=== PATIENT | female | born 1985 | race Caucasian/White ===

== ENCOUNTER 2018-12-29 00:46 | Emergency (ER) | payer MEDICAID ==
[~2018-12-29] VITALS: Ht 149.9 cm; Wt 49.4 kg
[~2018-12-29 00:46] MED LIST: ALBUPOW26; ERGO1CAP6 PO; HYDR500T13; TRAM50TA2
[2018-12-29 01:21] VITALS: BP 99/51
== END 2018-12-29 03:57 | disposition left against medical advice (07) ==
LOC: ER 00:48
DX: M54.5 Low back pain (principal); Z53.21 Procedure and treatment not carried out due to patient leaving prior to being seen by health care provider

== ENCOUNTER 2019-06-26 20:02 | Emergency (ER) | payer MEDICAID ==
[~2019-06-26] VITALS: Ht 152.4 cm; Wt 47.2 kg
[2019-06-26 20:21] VITALS: BP 113/68
[2019-06-26 20:49] LABS: Basophils # (auto) 0 uL; Basophils % (auto) 0.5 % (0.0-2.0); Eosinophils # (auto) 0.1 uL; Eosinophils % (auto) 1.7 % (0.0-7.0); Hematocrit 37.8 % (36.0-46.0); Hemoglobin 13.1 g/dL (12.2-16.2); Lymphocytes # (auto) 0.9 uL; Lymphocytes % (auto) 21.5 % (10.0-50.0); Mean Corpuscular Hgb Conc. 34.6 g/dL (32.0-36.0); Mean Corpuscular Volume 89.7 fL (80.0-100.0); Monocytes # (auto) 0.8 uL; Monocytes % (auto) 17.7 % (0.0-12.0); Neutrophils # (auto) 2.6 uL; Neutrophils % (auto) 58.6 % (37.0-80.0); Platelet Count (auto) 154 10^3/uL (140-450); Red Blood Cells 4.21 10^6/uL (4.0-5.20); Red Cell Distribution Width 13.3 % (11.8-14.3); White Blood Cell 4.4 10^3/uL (4.4-10.8)
== END 2019-06-27 | disposition left against medical advice (07) ==
LOC: ER 20:08
DX: R05 Cough (principal); R09.89 Other specified symptoms and signs involving the circulatory and respiratory systems; Z53.21 Procedure and treatment not carried out due to patient leaving prior to being seen by health care provider
CPT/HCPCS: 36415; 85025

== ENCOUNTER 2024-11-01 17:19 | Inpatient (IN) | payer MEDICAID ==
[~2024-11-01] VITALS: Ht 152.4 cm; Wt 42.2 kg
[2024-11-01 17:44] VITALS: BP 139/70; PULSE 82; RESP 16; TEMP 98.2; O2SAT 99
[2024-11-01] MEDS ORDERED: ONDANSETRON HCL 4 MG/2 ML VIAL IV ONE (17:45)
[2024-11-01] MEDS ORDERED: MORPHINE SULFATE 4 MG/ML SYR/VIAL IV ONE (17:45)
[2024-11-01 18:39] LABS: Basophils # (auto) 0.1 10 ^3/uL (0-0.2); Basophils % (auto) 1.4 % (0.0-2.0); Eosinophils # (auto) 0.4 10 ^3/uL (0-0.8); Eosinophils % (auto) 6.5 % (0.0-7.0); Hematocrit 36.2 % (36.0-46.0); Hemoglobin 12.5 g/dL (12.2-16.2); Lymphocytes # (auto) 1.9 10 ^3/uL (0.4-5.4); Lymphocytes % (auto) 35.8 % (10.0-50.0); Mean Corpuscular Hemoglobin 31.4 pg (28.0-32.0); Mean Corpuscular Hgb Conc. 34.6 g/dL (32.0-36.0); Mean Corpuscular Volume 90.6 fL (80.0-100.0); Monocytes # (auto) 0.4 10 ^3/uL (0-1.3); Monocytes % (auto) 6.8 % (0.0-12.0); Neutrophils # (auto) 2.7 10 ^3/uL (1.6-8.6); Neutrophils % (auto) 49.5 % (37.0-80.0); Nucleated Red Blood Cells % 0.1 %; Platelet Count (auto) 188 10^3/uL (140-450); White Blood Cell 5.4 10^3/uL (4.4-10.8)
--- NOTE | 2024-11-01 18:55 | DVH ---
EXAM: CT LS SPINE WO CONTRAST INDICATION: lumbar spine pain EXAM DATE: 11/01/2024 05:57 PM COMPARISON: None TECHNIQUE: Multiple axial CT images of the lumbar spine were obtained using bone algorithm. Axial and coronal reformatting was done. Bone and soft tissue windows were reviewed. Radiation Dose Information: CT Dose: CTDI volume is 7.14 mGy. Dose-length product is 468.77 mGy*cm Findings: There are 5 nonrib-bearing lumbar vertebrae. There is no evidence of an acute fracture or spondylolisthesis. The vertebral body heights are well-m aintained. No evidence of degenerative disc disease. No neuroforaminal narrowing. No spinal canal stenosis. The alignment is within normal limits. The paraspinal soft tissues appear within normal limits. The v isualized portions of the abdomen are unremarkable. T12-L1: Normal L1-L2: Normal L2-L3: Normal L3-L4: Normal L4-L5: Normal L5-S1: Normal Impression: 1. No evidence of an acute fracture.
[2024-11-01 18:56] LABS: Alanine Aminotransferase 11 U/L (7-40); Alkaline Phosphatase 90 U/L (46-116); Anion Gap 7 (5-15); BUN/Creatinine Ratio 10.7 (10.0-20.0); Bilirubin, Total 0.3 mg/dL (0.2-1.0); Calcium 10.2 mg/dL (8.7-10.4); Carbon Dioxide 23 mmol/L (20-31); Glucose 93 mg/dL (74-106); Potassium 3.9 mmol/L (3.5-5.1); Sodium 143 mmol/L (136-145); Total Protein 6.9 g/dL (5.7-8.2)
--- NOTE | 2024-11-01 18:56 | DVH ---
Indication: pelvic pain, mass protruding from urethra Technique: CT axial images of the abdomen and pelvis are obtained without contrast. Coronal and sagit [place] reformats were obtained. Radiation Dose Information: CTDI volume is 7.1 mGy. Dose-length product is 469 mGy*cm Comparison: None FINDINGS: There is limited interpretation of the abdomen and pelvis without administration of intravenous contr ast. The lung bases demonstrate no pleural effusion. Adrenal glands, spleen and pancreas unremarkable in shape. Liver unremarkable in shape. No CT eviden ce for cholelithiasis. No hydronephrosis, nephrolithiasis. Stomach is partially distended. Small bowel loops are normal in caliber. Moderate volume stool in the colon. Normal appendix. Bladder partially distended. No significant free pelvic fluid. No inguinal lymphadenopathy. No aggressive osseous process. IMPRESSION: 1. No CT evidence for acute abnormality of the abdomen/pelvis. 2. To evaluate for urethral mass recommend direct visualization and urology consultation. MRI of the pelvis with and without contrast can also be considered to further evaluate. 3. Other findings as described.
[2024-11-01 18:57] LABS: Aspartate Aminotransferase < 8 U/L (13-40); Blood Urea Nitrogen 8 mg/dL (9-23); Chloride 113 mmol/L (98-107)
--- NOTE | 2024-11-01 20:05 | ED.PDOC ---
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 She denies any diarrhea or constipation. She also notes that when she attempted to visualize her vaginal area, she noted something protruding from her urethra. She was able to obtain a video, showing an approximate 3 mm black colored mass protruding from her urethra. Chief Complaint: Urinary Time Seen by MD: 17:50 Primary Care Provider: TAY Arcos Notes: Nurses Notes, Medications, Allergies Allergies: Coded Allergies: Acetaminophen (Verified Allergy, Unknown, 11/01/24) Hydrocodone (Verified Allergy, Unknown, 12/29/18) Home Meds Reported Medications Albuterol (Albuterol) Pow 08/01/12 Ergocalciferol (Vitamin D) 50,000 Unt Cap, 12382 UNITS PO OD 08/01/12 [Acetaminophen/H1 Tab] (Acetaminophen/Hydrocodone) 1 TAB TAB No Conflict Check, TAB 07/21/12 [Tramadol Hcl50 Mg] (Tramadol Hcl) 50 MG TAB No Conflict Check, MG 07/21/12 Information Source: Patient Mode of Arrival: Ambulatory Severity: Moderate Past Medical History PAST MEDICAL HISTORY: Arthritis, Asthma, Cancer (cervical cancer - in remission) Past Medical History (Other): 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 Surgical History: Hysterectomy (total s/p endometriosis ), Tonsillectomy Surgical History (Other): Bradycardia with hybrid open-heart surgery and temporary pacemaker placement RETRIMMER History: Cervical Cancer, Endometriosis Family History Family History: Reviewed,noncontributory to illness Social History Smoker: Cigarettes Alcohol: Occasionally Drugs: Denies Drug Use Lives In: Home All Other Systems: Reviewed and Negative (Comprehensive systems review obtained and negative except for what is stated in the HPI.) Physical Exam General Appearance: No Apparent Distress HEENT: Other (Pupils and face symmetric. Moist mucous membranes.) Neck: Full Range of Motion, Normal Inspection Respiratory: Lungs Clear, No Accessory Muscle Use, No Respiratory Distress, Normal Breath Sounds Cardiovascular: No Edema, No JVD, Regular Rate/Rhythm Breast Exam: Deferred Gastrointestinal: Soft, Suprapubic, Tenderness Genitalia: Deferred Pelvic: Deferred Rectal: Deferred Extremities: Normal inspection, Normal range of motion, No pedal edema Musculoskeletal : Extremity Location: Back (Lower lumbar and sacral midline tenderness to palpation) Apperance: Swelling (Minimal soft tissue swelling midline sacral area without discoloration), Tenderness Neurologic: Alert (Oriented x4), Normal Affect, Normal Mood, Other (Ambulatory) Cerebellar Function: NOT DONE Reflexes: NOT DONE Skin: Dry, Normal Color, Warm Lymphatic: NOT DONE Was a procedure done? Was a procedure done?: No Differential Dx Considerations may include: UTI, bladder/urethral neoplasm, metastatic disease, disc disease, among others X-Ray, Labs, Meds, VS Vital Signs Date Time Temp Pulse Resp B/P (MAP) Pulse Ox O2 Delivery O2 Flow Rate FiO2 11/01/24 17:44 98.2 82 16 139/70 (93) 99 98.2 Lab Test 11/01/24 19:15 11/01/24 18:19 Range/Units Troponin I High Sensitivity < 3 L < 3 L </=34 ng/L White Blood Count 5.4 4.4-10.8 10^3/uL Red Blood Count 4.00 4.0-5.20 10^6/uL Hemoglobin 12.5 12.2-16.2 g/dL Hematocrit 36.2 36.0-46.0 % Mean Corpuscular Volume 90.6 80.0-100.0 fL Mean Corpuscular Hemoglobin 31.4 28.0-32.0 pg Mean Corpuscular Hemoglobin Concent 34.6 32.0-36.0 g/dL Red Cell Distribution Width 13.0 11.8-14.3 % Platelet Count 188 140-450 10^3/uL Mean Platelet Volume 9.6 6.9-10.8 fL Neutrophils (%) (Auto) 49.5 37.0-80.0 % Lymphocytes (%) (Auto) 35.8 10.0-50.0 % Monocytes (%) (Auto) 6.8 0.0-12.0 % Eosinophils (%) (Auto) 6.5 0.0-7.0 % Basophils (%) (Auto) 1.4 0.0-2.0 % Neutrophils # (Auto) 2.7 1.6-8.6 10 ^3/uL Lymphocytes # (Auto) 1.9 0.4-5.4 10 ^3/uL Monocytes # (Auto) 0.4 0-1.3 10 ^3/uL Eosinophils # (Auto) 0.4 0-0.8 10 ^3/uL Basophils # (Auto) 0.1 0-0.2 10 ^3/uL Nucleated Red Blood Cells 0.1 % Sodium Level 143 136-145 mmol/L Potassium Level 3.9 3.5-5.1 mmol/L Chloride Level 113 H 98-107 mmol/L Carbon Dioxide Level 23 20-31 mmol/L Anion Gap 7 5-15 Blood Urea Nitrogen 8 L 9-23 mg/dL Creatinine 0.75 0.550-1.02 mg/dL Glomerular Filtration Rate Calc 105 >90 mL/min BUN/Creatinine Ratio 10.7 10.0-20.0 Serum Glucose 93 74-106 mg/dL Lactic Acid Level 0.8 0.4-2.0 mmol/L Calcium Level 10.2 8.7-10.4 mg/dL Total Bilirubin 0.3 0.2-1.0 mg/dL Aspartate Amino Transferase (AST) < 8 L 13-40 U/L Alanine Aminotransferase (ALT) 11 7-40 U/L Alkaline Phosphatase 90 46-116 U/L B-Type Natriuretic Peptide 20.66 0-100 pg/mL Total Protein 6.9 5.7-8.2 g/dL Albumin 5.0 H 3.2-4.8 g/dL [place] [address] Ph: [phone] DIAGNOSTIC IMAGING Diagnostic Imaging Report : [id number] Signed PATIENT: BRADLEY NORRIS ACCT: [id number] UNIT: [id number] : 1985 LOC: ER ROOM / BED: / AGE / SEX: 39 / F ADM STATUS: REG ER SERVICE [id number] ORDERING PHYSICIAN: WANDA SAINI MD PROCEDURE(s): LS2CT - LS SPINE WO CONTRAST REASON: lumbar spine pain ORDER NUMBER(s): [id number], ACCESSION NUMBER(s): [id number] EXAM: CT LS SPINE WO CONTRAST INDICATION: lumbar spine pain EXAM DATE: 11/01/2024 05:57 PM COMPARISON: None TECHNIQUE: Multiple axial CT images of the lumbar spine were obtained using bone algorithm. Axial and coronal reformatting was done. Bone and soft tissue windows were reviewed. Radiation Dose Information: CT Dose: CTDI volume is 7.14 mGy. Dose-length product is 468.77 mGy*cm Findings: There are 5 nonrib-bearing lumbar vertebrae. There is no evidence of an acute fracture or spondylolisthesis. The vertebral body heights are well-maintained. No evidence of degenerative disc disease. No neuroforaminal narrowing. No spinal canal stenosis. The alignment is within normal limits. The paraspinal soft tissues appear within normal limits. The visualized portions of the abdomen are unremarkable. T12-L1: Normal L1-L2: Normal L2-L3: Normal L3-L4: Normal L4-L5: Normal L5-S1: Normal Impression: 1. No evidence of an acute fracture. ATED BY: SUZIE SANTILLAN DO DICTATED DATE/TIME: 11/01/241851 SIGNED BY: SUZIE SANTILLAN DO SIGNED DATE/TIME: 11/01/241851 CC: [place] [id number] Ph: [phone] DIAGNOSTIC IMAGING Diagnostic Imaging Report : [id number] Signed PATIENT: BRADLEY NORRIS ACCT: [id number] UNIT: [id number] : 1985 LOC: ER ROOM / BED: / AGE / SEX: 39 / F ADM STATUS: REG ER SERVICE [id number] ORDERING PHYSICIAN: WANDA SAINI MD PROCEDURE(s): ABPL - CT AB PEL WO CON-NO ORAL OR IV REASON: pelvic pain, mass protruding from urethra ORDER NUMBER(s): [id number], ACCESSION NUMBER(s): [id number] Indication: pelvic pain, mass protruding from urethra Technique: CT axial images of the abdomen and pelvis are obtained without contrast. Coronal and sagittal reformats were obtained. Radiation Dose Information: CTDI volume is 7.1 mGy. Dose-length product is 469 mGy*cm Comparison: None FINDINGS: There is limited interpretation of the abdomen and pelvis without administration of intravenous contrast. The lung bases demonstrate no pleural effusion. Adrenal glands, spleen and pancreas unremarkable in shape. Liver unremarkable in shape. No CT evidence for cholelithiasis. No hydronephrosis, nephrolithiasis. Stomach is partially distended. Small bowel loops are normal in caliber. Moderate volume stool in the colon. Normal appendix. Bladder partially distended. No significant free pelvic fluid. No inguinal lymphadenopathy. No aggressive osseous process. IMPRESSION: 1. No CT evidence for acute abnormality of the abdomen/pelvis. 2. To evaluate for urethral mass recommend direct visualization and urology consultation. MRI of the pelvis with and without contrast can also be considered to further evaluate. 3. Other findings as described. 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 CT abdomen and pelvis IMPRESSION: 1. No CT evidence for acute abnormality of the abdomen/pelvis. 2. To evaluate for urethral mass recommend direct visualization and urology consultation. MRI of the pelvis with and without contrast can also be considered to further evaluate. 3. Other findings as described. CBC, CMP, lactate, BNP and troponin unremarkable for any abnormality of acute significance. Patient did not provide a urine sample. Patient treated with the following in the ED: Morphine 4 mg IV, Zofran 4 mg IV Plan was to admit the patient for evaluation by Urology and possible ureteroscopy/cystoscopy. Prior to re-evaluation, the patient stated to staff that she was able to obtain an appointment [facility] and did not want to stay. She signed out against medical advice left the ED prior to my ability to discuss risks, benefits and alternatives to treatment. Patient was alert, oriented x4 and capable of making informed decisions at the time she signed out against medical advice. Time of 1ST Reevaluation: 18:20 Reevaluation 1ST: Unchanged Patient Education/Counseling: Diagnosis, Treatment Family Education/Counseling: No Family Present Departure 1 Departure Time of Disposition: 21:32 Impression: Primary Impression: Abdominal pain Qualified Codes: R10.30 - Lower abdominal pain, unspecified Additional Impressions: Back pain Qualified Codes: M54.50 - Low back pain, unspecified Mass of urethra Disposition: LEFT AGAINST MEDICAL ADVICE Condition: Fair Discharged With: Self Critical Care Note Critical Care Time?: No Stability Stability form required: No Heart Score Heart Score: Heart Score Response (Comments) Value History N/A 0 EKG N/A 0 Age N/A 0 Risk Factors N/A 0 Troponin N/A 0 Total 0 I personally scribed for WANDA SAINI MD ([email or web address]) on 11/01/24 at 20:05. Electronically submitted by Som Berkowitz ([email or web address]). I personally scribed for WANDA SAINI MD ([email or web address]) on 11/01/24 at 21:16. Electronically submitted by Som Berkowitz ([email or web address]). WANDA SAINI MD November 01, 2024 20:05
--- NOTE | 2024-11-01 21:36 | DVHHP2 ---
History of Present Illness History of Present Illness Patient was 39 years old female with a history of cervical carcinoma diagnosed with a 60, status post hysterectomy with salpingo-oophorectomy at the age of 23, history of coronary artery disease nonspecific, history of hybrid heart surgery in 2022 at [facility], could not get a details, history of asthma, arthritis, history of lupus came with multiple complaints. As per patient something is coming out of her urethra from today, as per patient when she P there is no blood but after she pees she has sees blood when wiping, she felt like something is coming out through her urethra. Patient also reported having dysuria since Thursday. Patient also reported feeling weak that extended from the lower back to the lower extremity but able to walk, on further inquiry patient was reported feeling dizzy tired, feels feverish temperature around 99.8-99.9 at home, intermittent fever. Patient also reported she has been through lots of anxiety and stress in her life and she is a holistic healer. Patient also endorsed poor appetite, nausea but no vomiting. Patient reported she has a history of HPV positive, repeat checkup revealed she has a precancerous lesion in the service but never got cured from treatment. Patient visited [facility] in June 16 with a complaint of symptomatic palpitation syncope with frequent narrow complex tachycardia. On 06/21/2019 Dr. Roberson did comprehensive electrophysiology study and ablation of SVT. Patient had successful EP study with evidence of S/F AVNRT, status post modification of slow pathway successfully. Patient denied taking any medication at this moment, denied any chest pain or shortness of breath acute joint pain or swelling dysarthria or change in vision. CT scan of the lumbar spine negative for any fracture, CT abdomen and pelvis negative for any acute intra-abdominal abnormality. To evaluate for urethral mass recommend direct visualization and urology consultation. MRI of the pelvis with and without contrast can also be considered to further evaluate. Past Medical History history of cervical carcinoma diagnosed with a 60, status post hysterectomy with salpingo-oophorectomy at the age of 23, history of coronary artery disease nonspecific, history of hybrid heart surgery in 2022 at [facility], could not get a details, history of asthma, arthritis, history of lupus Past Surgical History Hysterectomy (total s/p endometriosis ), Tonsillectomy Family History Mom had hypertension, diabetes mellitus, dad could not get details how Past Social History Patient lives with the and kids, vapes, smokes marijuana, denies alcoholism Review of Systems Review of Systems Patient was seen today at the bedside. Cardiovascular- deny acute chest pain or shortness of breath or cough or palpitation Respiratory denies cough or short of breath or wheezing Gastrointestinal- denies any rectal bleeding, nausea or vomiting Musculoskeletal-denies acute joint swelling or tenderness or redness Neurological- denies acute dysarthria, dysphagia, change in vision Psychiatry- denies depression or SI or HI Skin- denies acute rash or purpura Allergies: Coded Allergies: Acetaminophen (Verified Allergy, Unknown, 11/01/24) Hydrocodone (Verified Allergy, Unknown, 12/29/18) Exam Vital Signs Vital Signs Date Time Temp Pulse Resp B/P (MAP) Pulse Ox O2 Delivery O2 Flow Rate FiO2 11/01/24 17:44 98.2 82 16 139/70 (93) 99 98.2 Exam General examination- awake, alert, order HEENT- PEERLA, no acute nasal discharge Cardiovascular- S1-S2 audible, rate and rhythm regular, no murmur Respiratory- CTAB, no wheeze or rhonchi Gastrointestinal-nontender, bowel sound+. Nondistended Musculoskeletal-no acute joint swelling or tenderness or redness Lower extremity- no leg edema Neurological- cranial nerves intact, no acute dysarthria or dysphagia Psychiatry- denies depression or SI or HI Skin- no acute rash or purpura Labs/Xrays Labs Test 11/01/24 19:15 11/01/24 18:19 Range/Units Troponin I High Sensitivity < 3 L </=34 ng/L White Blood Count 5.4 4.4-10.8 10^3/uL Red Blood Count 4.00 4.0-5.20 10^6/uL Hemoglobin 12.5 12.2-16.2 g/dL Hematocrit 36.2 36.0-46.0 % Mean Corpuscular Volume 90.6 80.0-100.0 fL Mean Corpuscular Hemoglobin 31.4 28.0-32.0 pg Mean Corpuscular Hemoglobin Concent 34.6 32.0-36.0 g/dL Red Cell Distribution Width 13.0 11.8-14.3 % Platelet Count 188 140-450 10^3/uL Mean Platelet Volume 9.6 6.9-10.8 fL Neutrophils (%) (Auto) 49.5 37.0-80.0 % Lymphocytes (%) (Auto) 35.8 10.0-50.0 % Monocytes (%) (Auto) 6.8 0.0-12.0 % Eosinophils (%) (Auto) 6.5 0.0-7.0 % Basophils (%) (Auto) 1.4 0.0-2.0 % Neutrophils # (Auto) 2.7 1.6-8.6 10 ^3/uL Lymphocytes # (Auto) 1.9 0.4-5.4 10 ^3/uL Monocytes # (Auto) 0.4 0-1.3 10 ^3/uL Eosinophils # (Auto) 0.4 0-0.8 10 ^3/uL Basophils # (Auto) 0.1 0-0.2 10 ^3/uL Nucleated Red Blood Cells 0.1 % Sodium Level 143 136-145 mmol/L Potassium Level 3.9 3.5-5.1 mmol/L Chloride Level 113 H 98-107 mmol/L Carbon Dioxide Level 23 20-31 mmol/L Anion Gap 7 5-15 Blood Urea Nitrogen 8 L 9-23 mg/dL Creatinine 0.75 0.550-1.02 mg/dL Glomerular Filtration Rate Calc 105 >90 mL/min BUN/Creatinine Ratio 10.7 10.0-20.0 Serum Glucose 93 74-106 mg/dL Lactic Acid Level 0.8 0.4-2.0 mmol/L Calcium Level 10.2 8.7-10.4 mg/dL Total Bilirubin 0.3 0.2-1.0 mg/dL Aspartate Amino Transferase (AST) < 8 L 13-40 U/L Alanine Aminotransferase (ALT) 11 7-40 U/L Alkaline Phosphatase 90 46-116 U/L B-Type Natriuretic Peptide 20.66 0-100 pg/mL Total Protein 6.9 5.7-8.2 g/dL Albumin 5.0 H 3.2-4.8 g/dL Assessment/Plan Assessment/Plan Assessment and plan 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 pain wlikely due to 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 Suspected cystocele Suspected UTI History of asthma no exacerbation Arthritis History of lupus History of cardiac arrhythmia status post ablation therapy following electrophy siology study Anxiety/depression History of cervical carcinoma, status post hysterectomy with salpingo- oophorectomy CT abdomen negative for any acute intra-abdominal abnormality CT lumbar spine negative for acute fracture Plan Ordered Gynecology consult for further evaluation and care Pending urinalysis and uterine CS Continue current medication as prescribed Pending UDS Goals of care, Code status ; discussed with >15 minutes PUD prophylaxis: Pantoprazole DVT prophylaxis: Patient is ambulate Plan discussed with Dr. Nunez , nursing staff, Total time spent on patient evaluation, chart review, assessment and plan, disc ussion discussion >35 minutes Plan discussed with: Patient, Other (RN) Date of Service: November 01, 2024 Billing Provider: EVANS NUNEZ MD Common Visit Codes: 75545-CRPCZTX INP/OBS CARE (HIGH) Secondary Visit Codes: 87246-OSXJGERM CARE PLAN 30 MINUTES RAMBO LÓPEZ RESIDENT November 01, 2024 21:36
[2024-11-01] MEDS ORDERED: ACETAMINOPHEN 325 MG TAB PO PRN (21:45)
[2024-11-01] MEDS ORDERED: DOCUSATE SOD 100 MG CAP PO PRN (21:45)
[2024-11-01] MEDS ORDERED: MORPHINE SULFATE INJ 2 MG/ml SYRG IV PRN (21:45)
[2024-11-01] MEDS ORDERED: NITROGLYCERIN 0.4 MG SL TAB SL PRN (21:45)
[2024-11-01] MEDS ORDERED: PANTOPRAZOLE 40 MG TAB PO ONE (22:00)
--- NOTE | 2024-11-01 23:13 | DVHDSRES ---
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0-80.0) Lymphocytes (%) (Auto) 35.8 % (10.0-50.0) Monocytes (%) (Auto) 6.8 % (0.0-12.0) Eosinophils (%) (Auto) 6.5 % (0.0-7.0) Basophils (%) (Auto) 1.4 % (0.0-2.0) Neutrophils # (Auto) 2.7 10 ^3/uL (1.6-8.6) Lymphocytes # (Auto) 1.9 10 ^3/uL (0.4-5.4) Monocytes # (Auto) 0.4 10 ^3/uL (0-1.3) Eosinophils # (Auto) 0.4 10 ^3/uL (0-0.8) Basophils # (Auto) 0.1 10 ^3/uL (0-0.2) Nucleated Red Blood Cells 0.1 % Sodium Level 143 mmol/L (136-145) Potassium Level 3.9 mmol/L (3.5-5.1) Chloride Level 113 mmol/L (98-107) Carbon Dioxide Level 23 mmol/L (20-31) Anion Gap 7 (5-15) Blood Urea Nitrogen 8 mg/dL (9-23) Creatinine 0.75 mg/dL (0.550-1.02) Glomerular Filtration Rate Calc 105 mL/min (>90) BUN/Creatinine Ratio 10.7 (10.0-20.0) Serum Glucose 93 mg/dL (74-106) Lactic Acid Level 0.8 mmol/L (0.4-2.0) Calcium Level 10.2 mg/dL (8.7-10.4) Total Bilirubin 0.3 mg/dL (0.2-1.0) Aspartate Amino Transferase (AST) < 8 U/L (13-40) Alanine Aminotransferase (ALT) 11 U/L (7-40) Alkaline Phosphatase 90 U/L (46-116) B-Type Natriuretic Peptide 20.66 pg/mL (0-100) Total Protein 6.9 g/dL (5.7-8.2) Albumin 5.0 g/dL (3.2-4.8) Other Laboratory Tests 11/01/24 18:19 Brief Hx & Hospital Course: Discharge summary- Patient was 39 years old female with a history of cervical carcinoma diagnosed with a 60, status post hysterectomy with salpingo- oophorectomy at the age of 23, history of coronary artery disease nonspecific, history of hybrid heart surgery in 2022 at [facility], could not get a details, history of asthma, arthritis, history of lupus came with multiple complaints. As per patient something is coming out of her urethra from today, as per patient when she P there is no blood but after she pees she has sees blood when wiping, she felt like something is coming out through her urethra. Patient also reported having dysuria since Thursday. Patient also reported feeling weak that extended from the lower back to the lower extremity but able to walk, on further inquiry patient was reported feeling dizzy tired, feels feverish temperature around 99.8-99.9 at home, intermittent fever. Patient also reported she has been through lots of anxiety and stress in her life and she is a holistic healer. Patient also endorsed poor appetite, nausea but no vomiting. Patient reported she has a history of HPV positive, repeat checkup revealed she has a precancerous lesion in the service but never got cured from treatment. Patient visited [facility] in June 16 with a complaint of symptomatic palpitation syncope with frequent narrow complex tachycardia. On 06/21/2019 Dr. Roberson did comprehensive electrophysiology study and ablation of SVT. Patient had successful EP study with evidence of S/F AVNRT, status post modification of slow pathway successfully. Patient denied taking any medication at this moment, denied any chest pain or shortness of breath acute joint pain or swelling dysarthria or change in vision. CT scan of the lumbar spine negative for any fracture, CT abdomen and pelvis negative for any acute intra-abdominal abnormality. To evaluate for urethral mass recommend direct visualization and urology consultation. MRI of the pelvis with and without contrast can also be considered to further evaluate. Pending UDS, urinalysis. Patient left AMA. Patient's condition on discharge undetermined Operations or Procedures [place] [id number] Ph: [phone] DIAGNOSTIC IMAGING Diagnostic Imaging Report : [id number] Signed PATIENT: BRADLEY NORRIS ACCT: [id number] UNIT: [id number] : 1985 LOC: ER ROOM / BED: / AGE / SEX: 39 / F ADM STATUS: REG ER SERVICE [id number] ORDERING PHYSICIAN: WANDA SAINI MD PROCEDURE(s): LS2CT - LS SPINE WO CONTRAST REASON: lumbar spine pain ORDER NUMBER(s): [id number], ACCESSION NUMBER(s): [id number] EXAM: CT LS SPINE WO CONTRAST INDICATION: lumbar spine pain EXAM DATE: 11/01/2024 05:57 PM COMPARISON: None TECHNIQUE: Multiple axial CT images of the lumbar spine were obtained using bone algorithm. Axial and coronal reformatting was done. Bone and soft tissue windows were reviewed. Radiation Dose Information: CT Dose: CTDI volume is 7.14 mGy. Dose-length product is 468.77 mGy*cm Findings: There are 5 nonrib-bearing lumbar vertebrae. There is no evidence of an acute fracture or spondylolisthesis. The vertebral body heights are well-maintained. No evidence of degenerative disc disease. No neuroforaminal narrowing. No spinal canal stenosis. The alignment is within normal limits. The paraspinal soft tissues appear within normal limits. The visualized portions of the abdomen are unremarkable. T12-L1: Normal L1-L2: Normal L2-L3: Normal L3-L4: Normal L4-L5: Normal L5-S1: Normal Impression: 1. No evidence of an acute fracture. ATED BY: SUZIE SANTILLAN DO DICTATED DATE/TIME: 11/01/241851 SIGNED BY: SUZIE SANTILLAN DO SIGNED DATE/TIME: 11/01/241851 CC: [place] [id number] Ph: [phone] DIAGNOSTIC IMAGING Diagnostic Imaging Report : [id number] Signed PATIENT: BRADLEY NORRIS ACCT: [id number] UNIT: [id number] : 1985 LOC: ER ROOM / BED: / AGE / SEX: 39 / F ADM STATUS: REG ER SERVICE [id number] ORDERING PHYSICIAN: WANDA SAINI MD PROCEDURE(s): ABPL - CT AB PEL WO CON-NO ORAL OR IV REASON: pelvic pain, mass protruding from urethra ORDER NUMBER(s): [id number], ACCESSION NUMBER(s): [id number] Indication: pelvic pain, mass protruding from urethra Technique: CT axial images of the abdomen and pelvis are obtained without contrast. Coronal and sagittal reformats were obtained. Radiation Dose Information: CTDI volume is 7.1 mGy. Dose-length product is 469 mGy*cm Comparison: None FINDINGS: There is limited interpretation of the abdomen and pelvis without administration of intravenous contrast. The lung bases demonstrate no pleural effusion. Adrenal glands, spleen and pancreas unremarkable in shape. Liver unremarkable in shape. No CT evidence for cholelithiasis. No hydronephrosis, nephrolithiasis. Stomach is partially distended. Small bowel loops are normal in caliber. Moderate volume stool in the colon. Normal appendix. Bladder partially distended. No significant free pelvic fluid. No inguinal lymphadenopathy. No aggressive osseous process. IMPRESSION: 1. No CT evidence for acute abnormality of the abdomen/pelvis. 2. To evaluate for urethral mass recommend direct visualization and urology consultation. MRI of the pelvis with and without contrast can also be considered to further evaluate. 3. Other findings as described. ATED BY: EVE LOUISE MD DICTATED DATE/TIME: 11/01/241852 SIGNED BY: EVE LOUISE MD SIGNED DATE/TIME: 11/01/241852 CC: Condition at Discharge: Undetermined Final Diagnosis/Problems List 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 pain likely due to 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 Suspected cystocele Suspected UTI History of asthma no exacerbation Arthritis History of lupus History of cardiac arrhythmia status post ablation therapy following electrophysiology study Anxiety/depression History of cervical carcinoma, status post hysterectomy with salpingo-oophorectomy Discharge Disposition: AMA Discharge Instruct/Medications Diet: Regular Medications: Patient left AMA Discharge Statement: "Patient was advised to return to the ER or call 911 if any headaches, dizziness, shortness of breath, chest pain, abdominal pain, bleeding, fevers, or worsening of medical condition. Patient was counseled about treatment plan, medications, possible side effects, patientverbalized understanding. All questions were answered to the best of my ability. This discharge took greater then 30 minutes in planning, reviewing documentation, counseling the patient, and discussing with other team members." ASSESSMENT ASSESSMENT Assessment Date of Service: November 01, 2024 Billing Provider: EVANS GEE MD Common Visit Codes: 50739-LTX/OBS DISCH DAY <30MIN RAMBO LÓPEZ RESIDENT November 01, 2024 23:13 EVANS GEE MD November 02, 2024 18:00
[2024-11-02] MEDS ORDERED: PANTOPRAZOLE 40 MG TAB PO SCH (06:00)
== END 2024-11-01 23:13 | disposition left against medical advice (07) | DRG 861 ==
LOC: ER 17:33 → OVERFLOW 21:36
PROVIDERS: ADMIT Internal Medicine; ATTEND Internal Medicine Rheumatology
DX: G89.3 Neoplasm related pain (acute) (chronic) (principal); C79.51 Secondary malignant neoplasm of bone; G82.20 Paraplegia, unspecified; N81.10 Cystocele, unspecified; Z53.29 Procedure and treatment not carried out because of patient's decision for other reasons; F41.9 Anxiety disorder, unspecified; I25.10 Atherosclerotic heart disease of native coronary artery without angina pectoris; M19.90 Unspecified osteoarthritis, unspecified site; N39.0 Urinary tract infection, site not specified; J45.909 Unspecified asthma, uncomplicated; Z90.710 Acquired absence of both cervix and uterus; F17.210 Nicotine dependence, cigarettes, uncomplicated; Z88.6 Allergy status to analgesic agent; Z88.5 Allergy status to narcotic agent; Z83.3 Family history of diabetes mellitus; Z82.49 Family history of ischemic heart disease and other diseases of the circulatory system; Z63.4 Disappearance and death of family member; Z85.41 Personal history of malignant neoplasm of cervix uteri; Z79.899 Other long term (current) drug therapy
CPT/HCPCS: 36415; 72131; 74176; 80053; 83605; 83880; 84484; 85025; 87040; G0378

== ENCOUNTER 2024-12-28 18:53 | Emergency (ER) | payer SELFPAY ==
[~2024-12-28] VITALS: Ht 162.6 cm; Wt 43.5 kg
[2024-12-28 19:33] VITALS: BP 106/54; PULSE 71; RESP 18; TEMP 98; O2SAT 100
--- NOTE | 2024-12-28 19:35 | ED.PDOC ---
Back pain HPI HPI Comments 39 year old female presents to ER with complaints of left hip pain x 3 days. Patient states she started experiencing 3/10 left hip pain 3 days ago that started while doing "yoga". Patient states "I think I strained a muscle" and reports that she has been alternating heat with some relief. Patient presents to ER ambulatory on arrival, with steady gait, in no distress. Denies numbness/tingling, skin changes, pelvic pain, trauma/falls or any further symptoms/complaints Time Seen by MD: 18:59 Primary Care Provider: TAY Reviewed Notes: Nurses Notes, Medications, Allergies Allergies: Coded Allergies: Acetaminophen (Verified Allergy, Unknown, 11/01/24) Doxycycline (Verified Allergy, Unknown, 12/28/24) Hydrocodone (Verified Allergy, Unknown, 12/29/18) Home Meds Reported Medications Albuterol (Albuterol) Pow 08/01/12 Ergocalciferol (Vitamin D) 50,000 Unt Cap, 16482 UNITS PO OD 08/01/12 [Acetaminophen/H1 Tab] (Acetaminophen/Hydrocodone) 1 TAB TAB No Conflict Check, TAB 07/21/12 [Tramadol Hcl50 Mg] (Tramadol Hcl) 50 MG TAB No Conflict Check, MG 07/21/12 Information Source: Patient Mode of Arrival: Ambulatory Past Medical History PAST MEDICAL HISTORY: Arthritis, Asthma Past Medical History (Other): Lupus Surgical History: Hysterectomy, Tonsillectomy [employer] History: Cervical Cancer, Endometriosis Family History Family History: Unknown Social History Smoker: Cigarettes, Less Than 1 Pack/Day Alcohol: Occasionally Drugs: Denies Drug Use Lives In: Home Constitutional: denies: chills, diaphoresis, fatigue, fever, malaise, sweats, weakness, others EENTM: denies: blurred vision, double vision, ear bleeding, ear discharge, ear drainage, ear pain, ear ringing, eye pain, eye redness, hearing loss, mouth pain, mouth swelling, nasal discharge, nose bleeding, nose congestion, nose pain, photophobia, tearing, throat pain, throat swelling, voice changes, others Respiratory: denies: cough, hemoptysis, orthopnea, SOB at rest, shortness of breath, SOB with excertion, stridor, wheezing, others Cardiovascular: denies: chest pain, dizzy spells, diaphoresis, Dyspnea on exertion, edema, irregular heart beat, left arm pain, lightheadedness, palpitations, PND, syncope, others Gastrointestinal: denies: abdomen distended, abdominal pain, blood streaked bowels, constipated, diarrhea, dysphagia, difficulty swallowing, hematemesis, melena, nausea, poor appetite, poor fluid intake, rectal bleeding, rectal pain, vomiting, others Genitourinary: denies: abnormal vagina bleeding, burning, dyspareunia, dysuria, flank pain, frequency, hematuria, incontinence, pain, , vagina discharge, urgency, others Neurological: denies: dizziness, fainting, headache, left sided numbness, left sided weakness, numbness, paresthesia, pre-existing deficit, right sided numbness, right sided weakness, seizure, speech problems, tingling, tremors, weakness, others Musculoskeletal: reports: others (As stated in HPI) Integumetry: denies: bruises, change in color, change in hair/nails, dryness, laceration, lesions, lumps, rash, wounds, others Allergic/Immunocompromised: denies: Difficulty Healing, Frequent Infections, Hives, Itching, others Hematologic/Lymphatic: denies: anemia, blood clots, easy bleeding, easy bruising, swollen glands, others Endocrine: denies: excessive hunger, excessive sweating, excessive thirst, excessive urination, flushing, intolerance to cold, intolerance to heat, unexplained weight gain, unexplained weight loss, others Psychiatric: denies: anxiety, bipolar disorder, depression, hopeless, panic disorder, schizophrenia, sleepless, suicidal, others Physical Exam General Appearance: No Apparent Distress HEENT: PERRL/EOMI Neck: Full Range of Motion, Non-Tender, Normal Respiratory: Chest Non-Tender, Lungs Clear, No Accessory Muscle Use, No Respiratory Distress, Normal Breath Sounds Cardiovascular: No Murmur, No Gallop, Regular Rate/Rhythm Breast Exam: Deferred Gastrointestinal: NOT DONE Genitalia: Deferred Pelvic: Deferred Rectal: Deferred Extremities: No calf tenderness, Normal capillary refill, Normal range of motion Musculoskeletal : Extremity Location: Hip (Slight TTP over great trochanter of left lateral hip noted. No internal rotation/shortening to bilateral legs noted. Gait intact without abnormality) Neurologic: Alert, No Motor Deficits, Normal Affect, Normal Mood, No Sensory Deficits Cerebellar Function: Normal Reflexes: Normal Skin: Dry, Normal Color, Warm Peripheral Pulses: 2+ femoral (R), 2+ femoral (L), 2+ dorsalis pedis (R), 2+ dorsalis pedis (L), 2+ Radial (R), 2+ Radial (L), 2+ Brachial (R), 2+ Brachial (L) Lymphatic: No Adenopathy Was a procedure done? Was a procedure done?: No Sedation Sedation?: No Back Pain Differential Dx Differential Diagnosis: Fracture, Other (Neurovascular injury, dislocation) X-Ray, Labs, Meds, VS Vital Signs Date Time Temp Pulse Resp B/P (MAP) Pulse Ox O2 Delivery O2 Flow Rate FiO2 12/28/24 19:33 98.0 71 18 106/54 (71) 100 98.0 Advised on elevation and alternate heat/ice as needed for pain Advised to follow up with PCP in 1-2 days Patient verbalized understanding and agreeable with current plan of care Advised to return to ER immediately if symptoms worsen Time of 1ST Reevaluation: 19:12 Reevaluation 1ST: N/A Patient Education/Counseling: Diagnosis, Treatment, Prognosis, Need For Follow Up Family Education/Counseling: No Family Present SEPSIS Sepsis Screen Vital Signs Date Time Temp Pulse Resp B/P (MAP) Pulse Ox O2 Delivery O2 Flow Rate FiO2 12/28/24 19:33 98.0 71 18 106/54 (71) 100 98.0 Departure 1 Departure Time of Disposition: 19:34 Impression: Primary Impression: Strain of left hip Qualified Codes: S76.012A - Strain of muscle, fascia and tendon of left hip, initial encounter Disposition: HOME / SELF CARE / HOMELESS Condition: Stable Discharged With: Self Critical Care Note Critical Care Time?: No Stability Stability form required: No Heart Score Heart Score: Heart Score Response (Comments) Value History N/A 0 EKG N/A 0 Age N/A 0 Risk Factors N/A 0 Troponin N/A 0 Total 0 ARTURO MARTIN Dec 28, 2024 19:35
== END 2024-12-28 20:58 | disposition home or self-care (01) ==
LOC: ER 18:53
DX: S76.012A Strain of muscle, fascia and tendon of left hip, initial encounter (principal); J45.909 Unspecified asthma, uncomplicated; M19.90 Unspecified osteoarthritis, unspecified site; F17.210 Nicotine dependence, cigarettes, uncomplicated; Z90.710 Acquired absence of both cervix and uterus; Z79.899 Other long term (current) drug therapy; Z88.1 Allergy status to other antibiotic agents; Z88.5 Allergy status to narcotic agent; Z88.8 Allergy status to other drugs, medicaments and biological substances; X58.XXXA Exposure to other specified factors, initial encounter; Y93.89 Activity, other specified; Y92.89 Other specified places as the place of occurrence of the external cause; Y99.8 Other external cause status